=== PATIENT | female | born 1975 | race African-American/Black ===

== ENCOUNTER 2017-07-27 20:50 | Emergency (ER) | payer SELFPAY ==
[~2017-07-27] VITALS: Ht 167.6 cm; Wt 95.3 kg
[2017-07-27] MEDS ORDERED: NKM (21:09)
[2017-07-27 21:11] VITALS: BP 125/83
[2017-07-27] MEDS ORDERED: IBUPROFEN800 MG ORAL (21:14)
[2017-07-27] MEDS ORDERED: ROBAXIN-750750 MG PO (21:14)
[2017-07-27] MEDS ORDERED: Methocarbamol 750mg tab ORAL ONE (21:15)
[2017-07-27 21:25] VITALS: BP 125/83
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
== END 2017-07-27 21:25 | disposition home or self-care (01) ==
LOC: EMR 21:19
DX: S13.4XXA Sprain of ligaments of cervical spine, initial encounter (principal); V43.62XA Car passenger injured in collision with other type car in traffic accident, initial encounter; Y92.410 Unspecified street and highway as the place of occurrence of the external cause
CPT/HCPCS: 99283